=== PATIENT | female | born 1990 | race Caucasian/White ===

== ENCOUNTER 2017-11-02 03:18 | Emergency (ER) | END 2017-11-02 05:39 | disposition home or self-care (01) ==

== ENCOUNTER 2019-01-16 02:22 | Emergency (ER) | payer OTHER ==
[~2019-01-16] VITALS: Ht 165.1 cm; Wt 82.1 kg
[~2019-01-16 02:22] MED LIST: ACET325T33 PO; ASTHMA INHALER INH; CYCL10TA7 PO; HYDR-3498 PO; IBUP-1542 PO; OMEP20CA9 PO
[2019-01-16 02:25] VITALS: Ht 165.1 cm; Wt 82.1 kg
[2019-01-16] MEDS ORDERED: CYCLOBENZAPRINE 10 MG TAB PO ONE (03:30)
[2019-01-16 04:44] VITALS: BP 128/72; PULSE 74; RESP 18
--- NOTE | 2019-01-16 06:04 | ERD ---
ER Documentation Chief Complaint Chief Complaint Pt reports L arm pain when trying to sleep, denies injury HPI Patient is 28-year-old female presented to ED because she has difficulty sleep ing because she woke up with left arm pain. Patient denies any allergies to medications states this is never happened to her before. Patient rates the pain 10 out of 10. She is reporting with stable vitals. Patient denies any traumatic injury to the extremity. Patient able to move the extremity without difficulty. ROS All systems reviewed and are negative except as per history of present illness. Medications Home Meds Active Scripts Cyclobenzaprine Hcl* (Cyclobenzaprine Hcl*) 10 Mg Tablet, 10 MG PO TID, #15 TAB Prov:BARBARA TEIXEIRA PA-C 01/16/19 Ibuprofen* (Motrin*) 600 Mg Tab, 600 MG PO Q6, #30 TAB Prov:BARBARA TEIXEIRA PA-C 01/16/19 Acetaminophen* (Tylenol*) 325 Mg Tablet, 1 TAB PO Q6 PRN for PAIN AND OR ELEVATED TEMP, #20 TAB Prov:RENE GRAHAM PA-C 03/04/16 Omeprazole* (Prilosec*) 20 Mg Capsule.dr, 20 MG PO DAILY for 7 Days, CAP Prov:CARIASDIOGENES I. [employer] 10/04/15 Hydrocodone Bit-Acetaminophen* ([place]*) 5-325 Mg Tab, 1 TAB PO Q6 PRN for PAIN, #7 TAB Prov:DIOGENES CARIAS I. [employer] 10/04/15 Reported Medications [Asthma Inhaler] No Conflict Check, 2 INH INH Q4 08/06/11 Allergies Allergies: Coded Allergies: No Known Drug Allergy (Verified Allergy, Unknown, 11/02/17) PMhx/Soc Medical and Surgical Hx: pt denies Medical Hx History of Surgery: Yes (benign cyst removed from breast.) Anesthesia Reaction: No Hx Neurological Disorder: No Hx Respiratory Disorders: Yes (asthma) Hx Cardiac Disorders: No Hx Psychiatric Problems: No Hx Miscellaneous Medical Probl: No Hx Alcohol Use: No Hx Substance Use: No Hx Tobacco Use: No Smoking Status: Never smoker FmHx Family History: No diabetes, No coronary disease, No other Physical Exam Vitals Vital Signs Date Temp Pulse Resp B/P (MAP) Pulse Ox O2 O2 Flow FiO2 Time Delivery Rate 01/16/19 98.9 74 18 128/72 100 Room Air 04:44 (90) 01/16/19 98.9 75 24 136/59 100 02:25 (84) Physical Exam GENERAL: Moderate Distress CHEST: Clear to auscultation bilaterally. There are no rales, wheezes or rhonchi. HEART: Regular rate and rhythm. No murmurs, clicks, rubs or gallops. EXTREMITIES: mild swelling and deformity to left upper extremity with good ra nge of motion no signs of open fractures or exposure of soft tissue. No skin pallor noted. Patient has intact gross motor function and distal pulses are present and equal bilaterally. NEUROLOGIC: Motor strength is 5 out of 5 strength in left upper extremity. Sensation grossly intact. Results 24 hrs Laboratory Tests Test 01/16/19 03:49 POC Beta HCG, Qualitative NEGATIVE Current Medications Medications Dose Sig/Scotty Start Time Status Last (Trade) Ordered Route PRN Stop Time Admin Dose Reason Admin 10 mg ONCE ONCE 01/16/19 DC 01/16/19 Cyclobenzapri PO 03:30 01/16/19 03:32 ne HCl 03:31 (Flexeril) Procedures/MDM ED course: The patient was stable throughout the ED course. The patient and/or family informed of laboratory and diagnostic imaging results throughout the ED course. Medications given in ER: Cyclobenzaprine Patient tolerated medication well with no adverse reactions. Patient reported improvement in pain. Medical decision making: Is a 28-year-old female who is non presenting to the ED for left arm pain. Physical exam was unremarkable I could not find any gross deformity the patient denies trauma. Patient states she woke up in the middle the sleep and noticed that her left arm was a little numb. The patient is full range of motion. The patient has no pain on palpation. The patient has a little bit of a muscle spasm to the left lateral neck. The patient was given cyclobenzaprine in the ED. Upon reevaluation the patient appears to be doing much better. The patient showed no asymmetry no pronator drift no slurred speech. At this time I have low suspicion for TIA, fracture, dislocation, neurovascular injury. I advised the patient to take it easy and use heat in the cyclobenzaprine to loosen the extremity. Advised patient symptoms worsen return to ER immediately. The patient is in agreement to the treatment plan had no further questions upon discharge Prescription for home: Cyclobenzaprine I have discussed with the patient proper use and common side effects to expert with the medication . I advised the patient/family to speak with the pharmacist dispensing the medication to be advised of any potential drug interactions with other medication or supplements they may be taking. Discharge: At this time, patient is stable for discharge and outpatient management. I have instructed the patient to follow-up with his\her primary care physician in 1 to 2 days. I have discussed with the patient the possibility of needing to see a specialist for further work-up and imaging studies if symptoms persist. I have instructed the patient to promptly return to the ER for any new or worsening symptoms including increased pain, fever, nausea, vomiting, weakness or LOC. The patient and\or family expressed understanding of and agreement with this plan. All questions were answered. Home care instructions were provided. Disclaimer: Inadvertent spelling and grammatical errors are likely due to EHR\dictation software use and do not reflect on the overall quality of patient care. Also, please note that the electronic time recorded on the note does not necessarily reflect the actual time of the patient encounter. Departure Diagnosis: Primary Impression: Muscle spasm of left shoulder Condition: Stable Patient Instructions: Muscle Spasm, Muscle Strain, Extremity Referrals: [facility] YOU HAVE RECEIVED A MEDICAL SCREENING EXAM AND THE RESULTS INDICATE THAT YOU DO NOT HAVE A CONDITION THAT REQUIRES URGENT TREATMENT IN THE EMERGENCY DEPARTMENT. FURTHER EVALUATION AND TREATMENT OF YOUR CONDITION CAN WAIT UNTIL YOU ARE SEEN IN YOUR DOCTORS OFFICE WITHIN THE NEXT 1-2 DAYS. IT IS YOUR RESPONSIBILITY TO MAKE AN APPOINTMENT FOR FOLOW-UP CARE. IF YOU HAVE A PRIMARY DOCTOR --you should call your primary doctor and schedule an appointment IF YOU DO NOT HAVE A PRIMARY DOCTOR YOU CAN CALL OUR PHYSICIAN REFERRAL HOTLINE AT IF YOU CAN NOT AFFORD TO SEE A PHYSICIAN YOU CAN CHOSE FROM THE FOLLOWING [facility] [address] [facility] [address] [facility] [address] [facility] [address] [facility] [address] [facility] [address] [facility]. [facility] YOU HAVE RECEIVED A MEDICAL SCREENING EXAM AND THE RESULTS INDICATE THAT YOU DO NOT HAVE A CONDITION THAT REQUIRES URGENT TREATMENT IN THE EMERGENCY DEPARTMENT. FURTHER EVALUATION AND TREATMENT OF YOUR CONDITION CAN WAIT UNTIL YOU ARE SEEN IN YOUR DOCTORS OFFICE WITHIN THE NEXT 1-2 DAYS. IT IS YOUR RESPONSIBILITY TO MAKE AN APPOINTMENT FOR FOLOW-UP CARE. IF YOU HAVE A PRIMARY DOCTOR --you should call your primary doctor and schedule and appointment IF YOU DO NOT HAVE A PRIMARY DOCTOR YOU CAN CALL OUR PHYSICIAN REFERRAL HOTLINE AT . IF YOU CAN NOT AFFORD TO SEE A PHYSICIAN YOU CAN CHOSE FROM THE FOLLOWING [facility] INSTITUTIONS: [facility] [address] [place] [address] [facility] [address] [place] [address] [facility] [address] [place] [address] [facility] Care 7 a.m.- 11 p.m. Every Day of the Week NO APPOINTMENT OR AUTHORIZATION NEEDED Additional Instructions: Call your primary care doctor TOMORROW for an appointment during the next 1-2 days.See the doctor sooner or return here if your condition worsens before your appointment time. BARBARA TEIXEIRA PA-C Jan 16, 2019 06:04
== END 2019-01-16 04:44 | disposition home or self-care (01) ==
LOC: FTE 02:22
DX: M62.838 Other muscle spasm (principal); J45.909 Unspecified asthma, uncomplicated
CPT/HCPCS: 81025; Z7610; 99283